=== PATIENT | female | born 1995 | race Caucasian/White ===

== ENCOUNTER → 2018-11-02 | Outpatient (CLI) | payer BC ==
[~2018-11-02] MED LIST: CEPH500 PO; CIPR500 PO; CODACE30 PO; PHENA200 PO; PRED20 PO; Zofran Odt8 MG SL
[2018-11-02 18:02] LABS: BASOPHILS ABSOLUTE AUTO 0.05 K/mm3 (0.00-0.23); BASOPHILS PERCENT AUTO 0 % (0-2); EOSINOPHILS ABSOLUTE AUTO 0.05 K/mm3 (0.00-0.68); EOSINOPHILS PERCENT AUTO 0 % (0-6); Hematocrit 41.1 % (33.0-51.0); Hemoglobin 14.8 g/dL (11.5-16.0); IMMATURE GRAN ABSOLUTE AUTO 0.03 K/mm3 (0.00-0.10); IMMATURE GRAN PERCENT AUTO 0 % (0-1); LYMPHOCYTES ABSOLUTE AUTO 1.19 K/mm3 (0.84-5.20); LYMPHOCYTES PERCENT AUTO 10 % (21-46); MONOCYTES PERCENT AUTO 5 % (4-13); Mean Corpuscular HGB 32.9 pg (26.0-34.0); Mean Corpuscular Volume 91 fL (80-100); Mean Platelet Volume 10.3 fL (9.1-12.4); NEUTROPHILS ABSOLUTE AUTO 9.88 K/mm3 (1.96-9.15); NEUTROPHILS PERCENT AUTO 84 % (41-73); Platelet Count 288 K/mm3 (150-400); RDW Coefficient Variation 11.9 % (11.7-14.2); RDW Standard Deviation 39.9 fL (35.1-46.3)
== END | disposition home or self-care (01) ==
LOC: LAB SHORT 17:58 → LAB EV 17:58
PROVIDERS: Physician Assistant Surgical
DX: F41.9 Anxiety disorder, unspecified (principal)
CPT/HCPCS: 84443; 85025

== ENCOUNTER → 2019-01-10 | Outpatient (CLI) | payer BC | END | disposition home or self-care (01) | LOC: LAB 12:11 → LAB SHORT 12:11 | PROVIDERS: Advanced Practice Midwife | DX: Z01.419 Encounter for gynecological examination (general) (routine) without abnormal findings (principal) | CPT/HCPCS: G0123 ==

== ENCOUNTER → 2019-03-21 | Outpatient (CLI) | payer BC | LOC: LAB 16:42 → LAB SHORT 16:42 | DX: R10.2 Pelvic and perineal pain (principal); R35.0 Frequency of micturition; R30.0 Dysuria | CPT/HCPCS: 87077; 87086; 87186 ==

== ENCOUNTER 2019-10-24 13:52 | Emergency (ER) | payer BC ==
[~2019-10-24] VITALS: Ht 172.7 cm; Wt 62.6 kg
[2019-10-24 16:20] LABS: Calcium, Ionized (POC) 1.18 mmol/L (1.10-1.46); Chloride (POC) 100 mmol/L (98-108); Creatinine (POC) 0.7 mg/dL (0.6-1.0); Glucose (ISTAT POC) 87 mg/dL (70-99); Potassium (POC) 3.7 mmol/L (3.5-5.5); Sodium (POC) 139 mmol/L (135-148); Total CO2 (POC) 26 mmol/L (21-32)
== END 2019-10-24 16:24 | disposition home or self-care (01) ==
LOC: ER 13:52
PROVIDERS: Physician Assistant
DX: R00.2 Palpitations (principal); Z87.891 Personal history of nicotine dependence
CPT/HCPCS: 36415; 71046; 80047; 85014; 93005; 93010; 99284-25

== ENCOUNTER 2021-07-20 10:25 | Emergency (ER) | payer BC ==
[~2021-07-20] VITALS: Ht 172.7 cm; Wt 59.0 kg
== END 2021-07-20 12:43 | disposition home or self-care (01) ==
LOC: ER 10:25
DX: R11.0 Nausea (principal); R55 Syncope and collapse; T50.B95A Adverse effect of other viral vaccines, initial encounter
CPT/HCPCS: 96374; 96375; 99284-25; J1200; J2405; J7030

== ENCOUNTER 2023-03-20 07:57 | Emergency (ER) | payer BC ==
[~2023-03-20] VITALS: Ht 172.7 cm; Wt 77.1 kg
[2023-03-20 08:05] VITALS: BP 138/87
[2023-03-20] MEDS ORDERED: ALLEGRA ALLERG180 MG PO (08:07)
[2023-03-20] MEDS ORDERED: SULTRIDS PO (08:15)
== END 2023-03-20 08:26 | disposition home or self-care (01) ==
LOC: ER 07:57
DX: L03.116 Cellulitis of left lower limb (principal); Z79.899 Other long term (current) drug therapy
CPT/HCPCS: 99282; A9270

== ENCOUNTER 2023-03-21 23:25 | Emergency (ER) | payer BC ==
[~2023-03-21] VITALS: Ht 172.7 cm; Wt 77.1 kg
[~2023-03-21 23:25] MED LIST changes: +ALLEGRA ALLERG180 MG PO; +SULTRIDS PO
[2023-03-22] MEDS ORDERED: CEPH500 PO (03:09)
[2023-03-22 03:25] VITALS: BP 123/87
== END 2023-03-22 03:40 | disposition home or self-care (01) ==
LOC: ER 23:25
DX: L03.116 Cellulitis of left lower limb (principal); L02.416 Cutaneous abscess of left lower limb; Z79.899 Other long term (current) drug therapy
CPT/HCPCS: 10060; 99282-25; A9270

== ENCOUNTER 2023-12-04 13:58 | Emergency (ER) | payer BC ==
[~2023-12-04] VITALS: Ht 172.7 cm; Wt 74.8 kg
[2023-12-04 14:02] VITALS: BP 132/92
[2023-12-04] MEDS ORDERED: Acetaminophen 325 MG TABLET PO ONE (14:45)
[2023-12-04] MEDS ORDERED: Ketorolac Tromethamine 30mg Vial IM ONE (14:45)
[2023-12-04] MEDS ORDERED: Lidocaine 4% 1 Patch TOP ONE (14:45)
[2023-12-04] MEDS ORDERED: Cyclobenzaprine HCl 10 MG Tab PO ONE (14:45)
[2023-12-04] MEDS ORDERED: CYCL10 PO (15:55)
[2023-12-04] MEDS ORDERED: LIDOCAINE1 EACH TOP (15:55)
== END 2023-12-04 16:26 | disposition home or self-care (01) ==
LOC: ER 13:58
DX: S29.012A Strain of muscle and tendon of back wall of thorax, initial encounter (principal); X50.9XXA Other and unspecified overexertion or strenuous movements or postures, initial encounter; Y92.002 Bathroom of unspecified non-institutional (private) residence as the place of occurrence of the external cause; Y93.89 Activity, other specified
CPT/HCPCS: 96372; 99283-25; A9270; J1885

== ENCOUNTER → 2024-02-20 | Outpatient (CLI) | payer BC ==
[~2024-02-20] MED LIST changes: +CYCL10 PO; +LIDOCAINE1 EACH TOP
== END | disposition home or self-care (01) ==
LOC: LAB 15:44 → LAB SHORT 15:44
DX: L03.90 Cellulitis, unspecified (principal)
CPT/HCPCS: 87070; 87205

== ENCOUNTER 2025-03-22 06:46 | Emergency (ER) | payer BC ==
[~2025-03-22] VITALS: Ht 172.7 cm; Wt 81.7 kg
[2025-03-22 07:18] VITALS: BP 123/90
[2025-03-22] MEDS ORDERED: Ketorolac Tromethamine 15mg Vial IM ONE (10:25)
[2025-03-22] MEDS ORDERED: TiZANidine HCl 4 MG Tab PO ONE (10:25)
[2025-03-22] MEDS ORDERED: Lidocaine 4% 1 Patch TOP ONE (10:25)
[2025-03-22] MEDS ORDERED: TIZA4 PO (11:32)
[2025-03-22] MEDS ORDERED: Voltaren100 GM TOP (11:32)
[2025-03-22] MEDS ORDERED: LIDO700A20 TOP (11:32)
== END 2025-03-22 11:39 | disposition home or self-care (01) ==
LOC: ER 06:46
DX: M54.9 Dorsalgia, unspecified (principal); Z79.899 Other long term (current) drug therapy; Z79.2 Long term (current) use of antibiotics; Z59.89 Other problems related to housing and economic circumstances
CPT/HCPCS: 96372; 99282-25; A9270; J1885

== ENCOUNTER → 2025-08-15 | Outpatient (CLI) | payer BC ==
[~2025-08-15] MED LIST changes: +LIDO700A20 TOP; +TIZA4 PO; +Voltaren100 GM TOP
== END | disposition home or self-care (01) ==
LOC: LAB 10:00 → LAB SHORT 10:00
PROVIDERS: General Practice
DX: Z12.4 Encounter for screening for malignant neoplasm of cervix (principal)
CPT/HCPCS: G0145